=== PATIENT | female | born 1970 | race Caucasian/White ===

== ENCOUNTER → 2017-10-09 | Day surgery (SDC) | payer OTHER ==
[~2017-10-09] VITALS: Ht 170.1 cm; Wt 92.1 kg
--- NOTE | ~2017-10-09 | PROC NOTE ---
[place], [place] PROCEDURE NOTE NAME: JOHANA ROSS [facility] #: [id number] UNIT #: [id number] ROOM: DOCTOR: JELANI NUNN MD BIRTHDATE: [birth year] DOS: 10/09/2017 PREOPERATIVE DIAGNOSIS: Screening examination. POSTOPERATIVE DIAGNOSIS: Sigmoid diverticulosis, sigmoid polyp (25 cm). PROCEDURE: Colonoscopy with polypectomy. ENDOSCOPIST: Jelani Nunn MD [employer]ER: ARNALDO. ANESTHESIA: MAC. INDICATIONS: This is a 47-year-old lady who is here for a screening examination. The procedure and its complications were explained to the patient in detail preoperatively. Complications that were discussed included but were not limited to, bleeding, colon perforation and missed lesions. She agreed to proceed. DESCRIPTION OF PROCEDURE: After identifying the patient, the patient was brought to the endoscopy suite and placed in the left lateral position. After IV sedation was administered, a timeout procedure was called and a digital rectal exam was performed. This was within normal limits. An adult colonoscope was now introduced into the anal canal and advanced sequentially into the rectum, sigmoid colon, descending colon, transverse colon and ascending colon, up to the cecum. There was found to be sigmoid diverticulosis and a single polyp at 25 cm, which was removed with the help of a snare and sent for histopathological diagnosis. Upon reaching the cecum, the scope was withdrawn. Total withdrawal time was approximately 7 minutes. Hemostasis was confirmed at the site of the polypectomy and the scope was then withdrawn. The patient was then taken to the recovery room in stable fashion. There were no complications. Dr. Jelani Nunn, the attending endoscopist, was present throughout the operating case. Based on these findings, the patient is recommended to have another colonoscopy in the next 3-5 years or sooner if she has new symptoms. These findings were discussed with the patient's family. Jelani Nunn MD CM:PROCNOTE:PROCEDURE NOTE [id number] JELANI NUNN MD
[2017-10-09 08:00] VITALS: BP 117/67
[2017-10-09 09:22] VITALS: BP 114/34
[2017-10-09 09:37] VITALS: BP 97/56
[2017-10-09 09:52] VITALS: BP 102/66
== END | disposition home or self-care (01) ==
LOC: SDC 10-06 11:45
DX: Z01.818 Encounter for other preprocedural examination (principal); K57.30 Diverticulosis of large intestine without perforation or abscess without bleeding; K63.5 Polyp of colon; F41.9 Anxiety disorder, unspecified; E66.01 Morbid (severe) obesity due to excess calories; Z68.41 Body mass index [BMI] 40.0-44.9, adult